=== PATIENT | female | born 1955 | race Caucasian/White ===

== ENCOUNTER 2016-08-28 23:47 | Emergency (ER) | payer MEDICARE, OTHER ==
[~2016-08-28 23:47] MED LIST: ABILIFY2; ACE; ASAB PO; B121000P IM; BACDS PO; CEFT2 PO; CORTEF20 MG PO; CORTEF5 PO; FLAG500TAB PO; LORTAB10 PO; MACRODANTIN 10100 MG PO; MIRALAXPKT PO; PRILOSEC40 MG PO; PROTONIX PO; SEROQUEL PO; TYLENOL 3 PO; XANAX XR2 MG PO; XANAX1 MG PO; XANAX2 MG PO; ZESTORETIC1 TA1 PO; ZOFRAN ODT4 MG; [UNRECOGNIZED DRUG - OTHER]; [UNRECOGNIZED DRUG - OTHER] PO
== END 2016-08-29 00:15 | disposition home or self-care (01) ==
LOC: ER 23:47
DX: R06.00 Dyspnea, unspecified (principal); I10 Essential (primary) hypertension; K21.9 Gastro-esophageal reflux disease without esophagitis; F31.9 Bipolar disorder, unspecified; Z85.038 Personal history of other malignant neoplasm of large intestine; Z90.710 Acquired absence of both cervix and uterus; Z98.890 Other specified postprocedural states; Z88.0 Allergy status to penicillin; Z88.1 Allergy status to other antibiotic agents; Z79.899 Other long term (current) drug therapy
CPT/HCPCS: 71010; 93005; 99285